=== PATIENT | female | born 1965 | race Caucasian/White ===

== ENCOUNTER 2024-01-05 20:19 | Emergency (ER) | payer MEDICAID, SELFPAY ==
[2024-01-05 20:21] VITALS: BP 162/102; PULSE 106; RESP 18; TEMP 36.6; O2SAT 99; BMI 38.0
[2024-01-05] MEDS: 0.9% Normal Saline (1000mL) 1,000 ML 1000 ML IV (21:03)
[2024-01-05 21:15] LABS: Bacteria 0 SEEN /hpf (None Seen); Mucous, Urine 0 SEEN /hpf (<or=2+)
--- NOTE | 2024-01-05 21:15 | CT_ITS ---
STUDY: CT ABDOMEN AND PELVIS WITHOUT CONTRAST REASON FOR EXAM: Female, 58 years old. abdominal pain RADIATION DOSAGE (If Supplied By Facility): CTDIvol = ( 21.51 ) mGy, DLP = ( 1187.49 ) mGycm TECHNIQUE: Transaxial images were obtained from the dome of the diaphragm to the symphysis pubis without oral contrast, and without intravenous contrast. Sagittal and coronal images were reconstructed. Individualized dose optimization techniques were used for this CT. COMPARISON: None. FINDINGS: The visualized lung bases are unremarkable. The visualized portions of the heart are within normal limits. Normal liver. Normal gallbladder and extrahepatic biliary system. Normal spleen. Normal pancreas. Normal bilateral adrenal glands. Normal right kidney. Normal left kidney. Possible minimal hiatal hernia, otherwise unremarkable stomach. Normal small intestine. Diverticulosis throughout the colon, more so through the sigmoid with inflammatory changes and thickening of the wall through the mid posterior sigmoid consistent with diverticulitis. There is non-visualization of the appendix. There is diffuse atherosclerotic calcification of the abdominal aorta, without a demonstrated aneurysm. Normal inferior vena cava. Normal retroperitoneum. Normal urinary bladder. Normal abdominal wall. There are diffuse degenerative changes of the visualized lumbar spine. CT/Abdomen/Pelvis without Cont IMPRESSION: Diverticulitis with a sigmoid as described with no free air or drainable abscess. No bowel obstruction. Multiple gallstones, otherwise unremarkable abdominal viscera. Minimal hiatal hernia. Electronically Signed: Cherry Bruce MD at 22:17 EST ,
[2024-01-05 21:16] LABS: Absolute Lymphocyte Count 1.65 X10^3/uL (0.83-4.51); Absolute Neutrophil Count 6.4 X10^3/uL (2.0-7.7); Basophil# 0.05 X10^3/uL; Basophil% 0.6 % (0-1); Eosinophil# 0.13 X10^3/uL; Eosinophils% 1.5 % (0-5); Hematocrit 35.3 % (37-47); Hemoglobin 11.5 g/dL (12.0-15.0); Lymphocyte # 1.65 X10^3/ul (0.83-4.51); Lymphocyte % 18.9 % (19-41); Mean Corp Hgb Conc 32.6 g/dL (32-36); Mean Corpuscular Hgb 29.2 pg (27.0-32.0); Mean Corpuscular Volume 89.6 fL (81-99); Mean Platelet Vol. 8.7 fl (6.2-12.0); Monocyte# 0.51 X10^3/uL; Monocyte% 5.8 % (0-10); NRBC Flagged by Analyzer 0 % (0-5); Neutrophil # 6.38 X10^3/uL (2.7-7.7); Neutrophil % 72.9 % (47-70); Platelet Count 254 K/mm3 (150-450); RBC Distribution Width CV 13.2 % (11.6-14.6); RBC Distribution Width SD 43.1 fl (35.1-43.9); Red Blood Count 3.94 M/mm3 (4.2-5.4); White Blood Count 8.8 K/mm3 (4.4-11.0)
[2024-01-05 21:17] LABS: Color, Urine Yellow (Yellow); Glucose, Dipstick Normal (Normal); Ketone-Dipstick Negative (Negative); Leukocyte Esterase-Dipstick 500 /ul (Negative); Nitrite-Dipstick Negative (Negative); Occult Blood-Urine 50 /ul (Negative); Protein-Dipstick Negative (Negative); Specific Gravity, Urine 1.015 (1.002-1.030); Urine Bilirubin Dipstick Negative (Negative); Urine Clarity Clear (Clear); Urine Urobilinogen Normal (Normal)
[2024-01-05 21:28] LABS: Red Blood Cells-Urine 0-5 SEEN /hpf (0-5); Squamous Epithelial Cells - UA 0-5 SEEN /hpf (5-10); White Blood Cells 5-10 SEEN /hpf (0-5)
[2024-01-05 21:38] LABS: ALB/GLOB Ratio 0.7 RATIO (0.9-2.4); AST(SGOT) 12 U/L (15-37); Alanine Aminotransfer ALT/SGPT 19 U/L (13-56); Albumin, Serum 3.5 g/dL (3.2-5.0); Alkaline Phosphatase 122 U/L (45-117); Anion Gap 7 (5-15); BUN 16 mg/dL (7-18); BUN/Creat Ratio 17.1 RATIO (10-20); Calcium,Total 9.1 mg/dL (8.5-10.1); Chloride 106 mmol/L (98-107); Creatinine, Serum 0.93 mg/dL (0.55-1.02); EST Glomerular Filtration Rate 65 mL/min (>60); Est Glom Filt Rate - Afr Amer 79 mL/min (>60); Estimated Creatinine Clearance 77.79 ml/min; Globulin 4.8 g/dL (2.2-4.2); Glucose 105 mg/dL (74-106); Lipase 27 U/L (13-75); Potassium 3.7 mmol/L (3.5-5.1); Protein, Total 8.3 g/dL (6.4-8.2); Sodium Level 140 mmol/L (136-145)
[2024-01-05] MEDS: Ketorolac 15 MG/ML Vial IV (21:58)
--- NOTE | 2024-01-05 22:07 | ED.VIS.GI ---
HPI HPI - GI History of Present Illness Chief Complaint: Abd Pain Narrative Narrative: 58-year-old female presenting with abdominal pain in the lower abdomen for the last few days. She states it started on the weekend. She has not any nausea or vomiting. No fevers or chills. No urinary or vaginal complaints. She is very tearful when she tries to discuss this. She states that she had similar symptoms about a year ago and had a urinalysis which they thought was consistent with UTI however the culture came back negative. She states she ultimately resolved without any other treatment. Patient states her only surgery was for ectopic versus ovarian cyst removal. She states this occurred during and they thought this was an ectopic so they did do surgery. Patient denies other abdominal surgeries. Patient is also complaining of mid back pain bilaterally.. She describes this as achy. [facility] Medical History Uterine fibroid Home Medications amoxicillin 875 mg-potassium clavulanate 125 mg tablet 1 tab PO BID #20 tabs 01/05/24 [Rx Last Taken Unknown] Allergy/AdvReac Type Severity Reaction Status Date / Time No Known Allergies Allergy Verified 01/05/24 20:21 Social History Smoking Status: Never smoker ROS ROS ED Constitutional Constitutional ED: Denies chills, fever(s) or sweats Eyes Eyes: Denies blurry vision or change in vision ENT ENT ED: Denies ear pain or sore throat Cardiovascular Cardiovascular: Denies chest pain, palpitations or racing heartbeat Respiratory/Chest Respiratory/Chest: Denies cough, dyspnea or sputum Gastrointestinal Gastrointestinal: Reports abdominal pain; Denies constipation, diarrhea, nausea or vomiting Genitourinary Genitourinary ED: Denies dysuria, hematuria or urinary frequency Musculoskeletal Musculoskeletal: Denies arthralgias, myalgias or neck pain Integumentary Denies abscess, Abrasions or rash Neurologic Neurologic: Denies headache(s), paresthesias or weakness Psychiatric Psychiatric: Denies anxiety, depression, suicidal ideation or suicidal thoughts Endocrine Endocrinology: Denies polydipsia or polyuria EXAM Physical Exam Const Vital Signs: 01/05/24 20:21 Temperature 97.9 F Temperature Source Oral Pulse Rate 106 H Respiratory Rate 18 Blood Pressure 162/102 H Blood Pressure Mean 122 Pulse Ox 99 Oxygen Delivery Method Room Air Positive well nourished General Appearance ED: NAD HEENT Reports moist mucous membranes normocephalic and atraumatic Eyes PERRL and EOMs intact bilaterally Resp normal respiratory effort and clear to auscultation bilaterally Cardio regular rate and regular rhythm GI GI Narrative: Mild suprapubic tenderness. MDM MDM MDM Narrative Medical decision making narrative: Patient presenting with abdominal pain and back pain. Differential includes at this time, patient is UTI, pyelonephritis, kidney stone, colitis, diverticulitis, dehydration, electrolyte normalities. CBC was obtained to assess levels of count, hemoglobin, platelets. BMP to assess renal function, electrolytes, glucose, anion gap. Liver enzymes were assessed to look for transaminitis. Lipase to look for pancreatitis. Urinalysis to assess for UTI. CBC shows normal white blood cell count 8.8. Hemoglobin 11.5. Platelets are normal at 254. Renal function and electrolytes within normal limits. LFTs unremarkable. Urinalysis shows 500 leukocyte esterase with 5-10 WBCs and 0-5 epithelial cells without any nitrates. Patient denies dysuria or urinary frequency. Patient was medicated with Toradol and IV fluids. She states she has not anything for nausea. CT of the abdomen pelvis was obtained. CT of the abdomen pelvis shows noncomplicated acute diverticulitis. Patient counseled on findings. I will discharge her home on Augmentin. She does not have any nausea and does not request any Zofran. Tylenol and ibuprofen for pain. Return cautions discussed. Impression: 1. Acute diverticulitis Lab Data Attestation: I reviewed the patient's lab results. Labs: Laboratory Results - last 24 hr 01/05/24 01/05/24 20:45 21:05 WBC 8.8 RBC 3.94 L Hgb 11.5 L Hct 35.3 L MCV 89.6 MCH 29.2 MCHC 32.6 RDW Std Deviation 43.1 RDW Coeff of Anita 13.2 Plt Count 254 MPV 8.7 Immature Gran % (Auto) 0.300 Neut % (Auto) 72.9 H Lymph % (Auto) 18.9 L [place] % (Auto) 5.8 Eos % (Auto) 1.5 Baso % (Auto) 0.6 Absolute Neuts (auto) 6.4 Absolute Lymphs (auto) 1.65 Nucleated RBC % 0 Sodium 140 Potassium 3.7 Chloride 106 Carbon Dioxide 27.0 Anion Gap 7 BUN 16 Creatinine 0.93 Estim Creat Clear Calc 77.79 Est GFR (MDRD) Af Amer 79 Est GFR (MDRD) Non-Af 65 BUN/Creatinine Ratio 17.1 Glucose 105 Calcium 9.1 Total Bilirubin 0.40 AST 12 L ALT 19 Alkaline Phosphatase 122 H Total Protein 8.3 H Albumin 3.5 Globulin 4.8 H Albumin/Globulin Ratio 0.7 L Lipase 27 Urine Color Yellow Urine Clarity Clear Urine pH 6.0 Ur Specific [place] 1.015 Urine Protein Negative Urine Glucose (UA) Normal Urine Ketones Negative Urine Occult Blood 50 H Urine Nitrite Negative Urine Bilirubin Negative Urine Urobilinogen Normal Ur Leukocyte Esterase 500 H Urine RBC 0-5 SEEN Urine WBC 5-10 SEEN Ur Squamous Epith Cells 0-5 SEEN Urine Bacteria 0 SEEN Urine Mucus 0 SEEN Radiography Diagnostic Testing: Clinical Impression(s) from Imaging Studies Abdomen/Pelvis CT 01/05/24 21:15 IMPRESSION: Diverticulitis with a sigmoid as described with no free air or drainable abscess. No bowel obstruction. Multiple gallstones, otherwise unremarkable abdominal viscera. Minimal hiatal hernia. Electronically Signed: Cherry Bruce MD at 22:17 EST , Discharge Plan Triage Chief Complaint: Abd Pain ED Provider: Clint Kim Dx/Rx/DC Orders Instructions: ED Diverticulitis Prescriptions: New amoxicillin-pot clavulanate 875-125 mg tablet 1 tab PO BID Qty: 20 0RF Primary Care Provider: Care Physician,No Primary Referrals: Jr Humphries DO [Med Staff - Active Staff] - 3-5 Days Care Physician,No Primary [Primary Care Provider] - Disposition Disposition: Home, Self Care
[2024-01-05] MEDS: Amox/Clavulanate 875 MG Tablet PO (23:00)
[2024-01-05 23:07] VITALS: BP 142/78; PULSE 81; RESP 16; O2SAT 98
== END 2024-01-05 23:09 | disposition home or self-care (01) ==
PROVIDERS: Emergency Provider Student in an Organized Health Care Education/Training Program; Visit Provider Student in an Organized Health Care Education/Training Program
DX: K57.32 Diverticulitis of large intestine without perforation or abscess without bleeding (principal); M54.9 Dorsalgia, unspecified
CPT/HCPCS: 74176; 80053; 81001; 83690; 85025; 96361; 96374; 99285; A4216

== ENCOUNTER → 2024-01-26 | Outpatient (CLI) | payer MEDICAID, SELFPAY ==
[2024-01-26 13:00] LABS: Vitamin B12 510 pg/mL (211-911); Vitamin D,25 Hydroxy 43.9 ng/mL
[2024-01-26 13:19] LABS: AST(SGOT) 24 U/L (15-37); Alanine Aminotransfer ALT/SGPT 29 U/L (13-56); Albumin, Serum 3.8 g/dL (3.2-5.0); Alkaline Phosphatase 108 U/L (45-117); Bilirubin, Direct 0.11 mg/dL (0.00-0.30); Globulin 4.3 g/dL (2.2-4.2); Protein, Total 8.1 g/dL (6.4-8.2); Thyroid Stim Hormone (TSH) 2.05 uIU/mL (0.358-3.74)
[2024-01-31 15:08] LABS: Age Gdln ACOG Testing 30-65 (.); HPV APTIMA, High Risk Negative (Negative)
[2024-02-02 12:48] LABS: HPV Reflexed? YES, CHARGE PATIENT
== END | disposition home or self-care (01) ==
PROVIDERS: PCP Family Medicine; Visit Provider Family Medicine
DX: Z12.4 Encounter for screening for malignant neoplasm of cervix (principal); R79.89 Other specified abnormal findings of blood chemistry; E53.8 Deficiency of other specified B group vitamins; E55.9 Vitamin D deficiency, unspecified; R41.3 Other amnesia
CPT/HCPCS: 36415; 80076; 82306; 82607; 84443; 87624; 88175; G0145

== ENCOUNTER → 2024-02-09 | Outpatient (CLI) | payer MEDICAID, SELFPAY ==
--- NOTE | 2024-02-09 08:44 | BD_ITS ---
STUDY: DUAL ENERGY X-RAY ABSORPTIOMETRY / DXA REASON FOR EXAM: Female, 58 years old. M810 TECHNIQUE: Bone Mineral Density (BMD) measurements of lumbar spine and bilateral hips were obtained. COMPARISON: None. FINDINGS: Lumbar Spine (L1-L4): g/cm2 (0.984) / T-score (-0.6) / Z-score (0.8) Findings are suggestive of normal bone density with a low fracture risk. Left Femur Total: g/cm2 (0.867) / T-score (-0.6) / Z-score (0.3) Left Femoral Neck: g/cm2 (0.795) / T-score (-0.5) / Z-score (0.8) Right Femur Total: g/cm2 (0.899) / T-score (-0.3) / Z-score (0.6) Right Femoral Neck: g/cm2 (0.778) / T-score (-0.6) / Z-score (0.6) BD/Dexa Bone Density Study IMPRESSION: The patient is considered normal as outlined below according to World Burke Organization (WHO) criteria with a low fracture risk. Reference Information: The T-score is the number of standard deviations above or below the standard which is normal for young adults at their peak bone mineral density. The World Health Organization (WHO) interprets the T-scores as follows: Above -1 Normal bone density Between -1 and -2.5 Osteopenia Equal to / or below -2.5 Osteoporosis As a practical clinical guideline, osteopenia may be graded as follows: Mild -1 through -1.5 Moderate -1.6 through -2.0 Severe -2.1 through -2.4 The Z-score is the number of standard deviations above or below age-matched controls. A Z-score of less than -1.5 would be considered abnormal. References: 1. NIH Osteoporosis and Related Bone Diseases www osteo.org 2. International Society for Clinical Densitometry www iscd.org 3. National Osteoporosis Foundation www nof.org Electronically Signed: Ayad Mcaias MD at 10:02 EDT ,
--- NOTE | 2024-02-09 08:44 | BI_ITS ---
MAMMOGRAPHY - BILATERAL SCREENING REASON FOR EXAM: Female, 58 years old. Routine annual screening examination. PERTINENT HISTORY: Non-contributory. TECHNIQUE: Digital bilateral breast bernice (3D mammographic acquisition) in the CC and MLO projections. 2-D mediolateral oblique (MLO) and craniocaudad (CC) views of both breasts were obtained. CAD: Full Field Digital Mammography with Computer Added Detection was performed. COMPARISON: Comparison is made with prior outside examination of December 02, 2014. FINDINGS: Breast Composition: The breasts are almost entirely fatty. There are no dominant masses or suspicious calcifications. Stable bilateral axillary lymph nodes. Stable subcentimeter bilateral intramammary lymph nodes. No other significant abnormalities are identified. There has been no significant change since the prior study. BI/SCRN MAMM (CAD)W/BERNICE BILAT IMPRESSION: Stable bilateral screening mammogram. Yearly follow-up mammogram recommended. (A) ASSESSMENT CATEGORY: BIRADS Category 2: Benign. A letter regarding these results will be sent to the patient by the facility within 30 days. Approximately 10% of breast cancers are not detected by mammography. A normal mammogram should not delay biopsy of a clinically suspicious abnormality. [id number] Electronically Signed: Ayad Macias MD at 13:16 EDT ,
== END | disposition home or self-care (01) ==
LOC: OPBD 08:43
PROVIDERS: PCP Family Medicine; Referring Provider Family Medicine; Visit Provider Family Medicine
DX: Z12.31 Encounter for screening mammogram for malignant neoplasm of breast (principal); Z13.820 Encounter for screening for osteoporosis; M81.0 Age-related osteoporosis without current pathological fracture
CPT/HCPCS: 77063; 77067; 77080

== ENCOUNTER 2024-02-20 09:48 | Day surgery (SDC) | payer MEDICAID, SELFPAY ==
--- NOTE | 2024-02-20 10:00 | PCM.HP.STD ---
[facility] - General General Date of Admission: 02/20/24 Date of Service: 02/20/24 Chief Complaint: Screening colonoscopy HPI Narrative ISIS COHN, is a 58 F who presents today for screening colonoscopy. She has no significant past medical history except for recent history of diverticulitis diagnosed back on 01/05/2024. It was uncomplicated diverticulitis and was treated successfully with 10 days of antibiotic therapy. She does not have any sequela since that episode of diverticulitis. She is in good health. She has not had a colonoscopy previous. She comes in for screening colonoscopy. [facility] Medical History (Updated 02/15/24 @ 15:48 by Chanelle Singh) Bladder disease Easy bruising Family hx of colon cancer Fatty liver Heartburn History of diverticulitis History of hiatal hernia History of IBS Hx of colonic polyp Migraine headache Non-smoker Post-menopausal Uterine fibroid Wears glasses Home Medications cholecalciferol (vitamin D3) 50 mcg (2,000 unit) capsule 50 mcg PO DAILY 01/31/24 [History Last Taken Unknown] Allergy/AdvReac Type Severity Reaction Status Date / Time No Known Allergies Allergy Verified 01/31/24 10:10 Family History (Updated 01/31/24 @ 10:09 by Va Rowley) Sister Colon cancer, Onset Age: 60 Surgical History (Updated 02/15/24 @ 15:40 by Chanelle Singh) History of ovarian cystectomy Hx of colonoscopy Social History (Updated 01/31/24 @ 10:10 by Va Rowley) Smoking Status: Never smoker substance use type: does not use ROS Review of Systems ROS Unobtainable: other Constitutional Constitutional: Denies fatigue, fever(s), poor appetite, weight gain or weight loss ENT HEENT: Denies mouth lesions Cardiovascular Cardiovascular: Denies abdominal bloating, abdominal edema or abdominal pain Respiratory/Chest Respiratory/Chest: Denies change in mental status, change in phlegm color, chest congestion or chest tightness Gastrointestinal Gastrointestinal: Denies belching, bloating, change in bowel habits, change in stool character, chewing difficulty, coffee ground emesis, constipation, cramping, diarrhea, dyspepsia, dysphagia, early satiety, excessive flatus, fecal incontinence, heartburn, hematemesis, hematochezia, hemorrhoids, loose stools, melena, nausea, odynophagia, rectal bleeding, tenesmus, vomiting or weight changes Genitourinary Genitourinary: Denies abdominal discomfort, burning urination or itching Musculoskeletal Musculoskeletal: Reports as per HPI; Denies muscle weakness or myalgias Integumentary Integumentary: Denies jaundice Neurologic Neurologic: Denies lack of coordination or weakness Psychiatric Psychiatric: Denies confusion, depression, memory loss, mood swings, paranoia or suicidal ideation Endocrine Endocrinology: Denies systems reviewed and no addt'l complaints, except as documented Hematologic/Lymphatic Hematologic/Lymphatic: Denies anemia, easy bleeding, easy bruising or lymphadenopathy Allergic/Immunologic Allergic/Immunologic: Denies systems reviewed and no addt'l complaints, except as documented Physical Exam Const alert General Appearance: cooperative Orientation / Consciousness: oriented to person HEENT hearing grossly normal bilaterally Head and Scalp: normal to inspection Face and Sinus: face symmetric Nose: external nose normal Mouth: oral and palatal mucosa normal Eyes conjunctivae normal General Eye: normal appearance of both eyes Neck full ROM General: normal visual inspection Lymph Lymphatic: no lymphadenopathy noted Chest inspection of chest normal and palpation of chest normal Chest: symmetrical chest wall rise Resp normal respiratory effort Effort and Inspection: able to speak in complete sentences Cardio regular rate GI non-distended Percussion: normal to percussion Rectal Exam: deferred Neuro Speech: speech normal Gait (Neuro): normal gait Assessment & Plan Assessment/Plan (1) Encounter for screening for malignant neoplasm of colon: PLAN: She was explained alternatives, risk, benefits including not withstanding bleeding, infection, sepsis, perforation, need for emergency to . She will have an ASA of 3.
[2024-02-20 10:05] VITALS: BP 150/97; PULSE 109; RESP 16; TEMP 36.4; O2SAT 97; BMI 37.4
[2024-02-20] MEDS: Lactated Ringers 1,000 ML 15 ML IV (10:14)
[2024-02-20 11:21] VITALS: BP 117/77; BP 150/97; PULSE 77; RESP 16; TEMP 36.4; O2SAT 99
--- NOTE | 2024-02-20 11:24 | OP.CCLET_ITS ---
02/20/2024 Shruthi Weiss [place] [id number] [address] Re : Colonoscopy procedure for Radha Medel Dear Dr. Weiss This procedure was performed on Tuesday, February 20, 2024. My impressions and recommendations are as follows: Impressions : - Diverticulosis in the recto-sigmoid colon and in the sigmoid colon. - The examination was otherwise normal on direct and retroflexion views. - No specimens collected. Recommendations : - Discharge patient to home. - Resume previous diet. - Continue present medications. - Repeat colonoscopy in 10 years for screening purposes. My findings are described in the full procedure note, which is enclosed. If I can be of further assistance, please feel free to contact me at . Sincerely, Jr Humphries, 02/20/2024 11:24:13 AM This report has been signed electronically.
--- NOTE | 2024-02-20 11:24 | OP.COLON_ITS ---
Patient Name: Radha Medel Procedure Date: 02/20/2024 10:56 AM Date of : 1965 Age: 58 Procedure: Colonoscopy Indications: Screening for colorectal malignant neoplasm Providers: Jr Humphries DO Referring MD: Shruthi Weiss Medicines: Monitored Anesthesia Care Patient Profile: This is a 58 year old female. Refer to note in patient chart for documentation of history and physical. Last Colonoscopy: none. The patient's first colonoscopy is today. Complications: No immediate complications. Procedure: Pre-Anesthesia Assessment: - Prior to the procedure, a History and Physical was performed, and patient medications and allergies were reviewed. The patient is competent. The risks and benefits of the procedure and the sedation options and risks were discussed with the patient. All questions were answered and informed consent was obtained. Patient identification and proposed procedure were verified by the physician in the pre-procedure area. Mental Status Examination: alert and oriented. Airway Examination: normal oropharyngeal airway and neck mobility. Respiratory Examination: clear to auscultation. CV Examination: normal. Prophylactic Antibiotics: The patient does not require prophylactic antibiotics. Prior Anticoagulants: The patient has taken no anticoagulant or antiplatelet agents. ASA Grade Assessment: II - A patient with mild systemic disease. After reviewing the risks and benefits, the patient was deemed in satisfactory condition to undergo the procedure. The anesthesia plan was to use monitored anesthesia care (MAC). Immediately prior to administration of medications, the patient was re-assessed for adequacy to receive sedatives. The heart rate, respiratory rate, oxygen saturations, blood pressure, adequacy of pulmonary ventilation, and response to care were monitored throughout the procedure. The physical status of the patient was re-assessed after the procedure. After I obtained informed consent, the scope was passed under direct vision. Throughout the procedure, the patient's blood pressure, pulse, and oxygen saturations were monitored continuously. The colonoscope was introduced through the anus and advanced to the cecum, identified by appendiceal orifice and ileocecal valve. The colonoscopy was performed without difficulty. The patient tolerated the procedure well. The quality of the bowel preparation was adequate. The ileocecal valve, appendiceal orifice, and rectum were photographed. Scope In: 11:03:57 AM Scope Withdrawal Time 0 hours 6 minutes 28 seconds Scope Out: 11:15:21 AM Total Procedure Duration Time 0 hours 11 minutes 24 seconds Findings: The perianal and digital rectal examinations were normal. A few small-mouthed diverticula were found in the recto-sigmoid colon and sigmoid colon. The exam was otherwise without abnormality on direct and retroflexion views. Impression: - Diverticulosis in the recto-sigmoid colon and in the sigmoid colon. - The examination was otherwise normal on direct and retroflexion views. - No specimens collected. Recommendation: - Discharge patient to home. - Resume previous diet. - Continue present medications. - Repeat colonoscopy in 10 years for screening purposes. Procedure Code(s): --- Professional --- G0121, Colorectal cancer screening; colonoscopy on individual not meeting criteria for high risk CPT copyright 2021 [employer]. All rights reserved. The codes documented in this report are preliminary and upon gold wheel blocker and polisher review may be revised to meet current compliance requirements. Jr Humphries DO 02/20/2024 11:24:13 AM This report has been signed electronically. Number of Addenda: 0 Note Initiated On: 02/20/2024 10:56 AM
[2024-02-20 11:26] VITALS: BP 117/77; BP 150/97; PULSE 78; RESP 16; O2SAT 100
[2024-02-20 11:32] VITALS: BP 117/91; BP 150/97; PULSE 76; RESP 14; TEMP 36.4; O2SAT 99
[2024-02-20 11:50] VITALS: BP 150/97
== END 2024-02-20 12:20 | disposition home or self-care (01) ==
LOC: EN 09:49 → AC 09:50
PROVIDERS: PCP Family Medicine; Referring Provider Family Medicine; Visit Provider Internal Medicine Gastroenterology
PROC: 0DJD8ZZ Inspection of Lower Intestinal Tract, Via Natural or Artificial Opening Endoscopic (ICD-10-PCS; CPT 45378; principal; 2024-02-20 10:55)
DX: Z12.11 Encounter for screening for malignant neoplasm of colon (principal); Z80.0 Family history of malignant neoplasm of digestive organs; Z86.010 Personal history of colon polyps; K57.30 Diverticulosis of large intestine without perforation or abscess without bleeding; Z87.19 Personal history of other diseases of the digestive system; K21.9 Gastro-esophageal reflux disease without esophagitis
CPT/HCPCS: 45378; J7120; J2405